=== PATIENT | male | born 1945 | race Caucasian/White ===

== ENCOUNTER 2016-08-08 17:02 | Emergency (ER) | payer MEDICARE, OTHER ==
[2016-08-08 18:03] LABS: BASOPHIL 0.3 % (0-2); EOSINOPHIL 0.3 % (0-7); HGB 12.1 g/dl (13.2-18.0); LYMPHOCYTE 11.1 % (15-48); MCH 30.6 pg (25.0-31.0); MCHC 35.6 g/dL (32.0-36.0); MCV 85.9 fL (78.0-100.0); MONOCYTE 8.3 % (0-12); MPV 8.6 fL (6.0-9.5); PLT 272 K/uL (150-400); RBC 3.96 M/uL (4.70-6.00); WBC 9.2 K/uL (4.0-10.5)
[2016-08-08 18:13] LABS: CREATININE 1.1 mg/dL (0.7-1.2); LACTIC ACID 2.3 mmol/L (0.5-2.2)
[2016-08-08 18:35] LABS: BILIRUBIN NEGATIVE (NEGATIVE); BLOOD 3+ Ery/uL (NEGATIVE); CLARITY CLOUDY (CLEAR); COLOR RED (YELLOW); GLUCOSE (U) NORMAL (NORMAL); KETONE (U) TRACE mg/dL (NEGATIVE); LEUKOCYTES TRACE Leu/uL (NEGATIVE); NITRITE NEGATIVE (NEGATIVE); PROTEIN 3+ mg/dL (NEGATIVE); UROBILINOGEN 0.2 mg/dL (0.2-1.0)
[2016-08-08 18:37] LABS: BACTERIA TRACE; URINARY RBC TNTC
== END 2016-08-08 20:13 | disposition home or self-care (01) ==
LOC: FER 17:02
PROVIDERS: Emergency Medicine
DX: R31.9 Hematuria, unspecified (principal); E11.9 Type 2 diabetes mellitus without complications; I48.91 Unspecified atrial fibrillation; J44.9 Chronic obstructive pulmonary disease, unspecified; K21.9 Gastro-esophageal reflux disease without esophagitis; Z87.891 Personal history of nicotine dependence; Z88.0 Allergy status to penicillin; Z88.5 Allergy status to narcotic agent; Z79.01 Long term (current) use of anticoagulants; Z95.1 Presence of aortocoronary bypass graft
CPT/HCPCS: 36415; 80048; 81001; 83605; 85025; 87040; 87088

== ENCOUNTER 2021-01-01 13:57 | Day surgery (SDCO) | payer MEDICARE, OTHER ==
[~2021-01-01] VITALS: Ht 190.5 cm; Wt 102.2 kg
[~2021-01-01 13:57] MED LIST: AMIODARONE HCL200 MG PO; BILBERRY100 MG PO; BUMEX1 MG PO; CARDIZEM CD180 MG PO; CINNAMON500 MG PO; CLONAZEPAM0.5 MG PO; CO Q-10100 MG PO; CRESTOR5 MG PO; ELIQUIS5 MG PO; ISOSORBIDE MON120 MG PO; LOPRESSOR50 MG PO; METFORMIN HCL500 MG PO; NITROQUIK SL0.4 MG SL; PROAIR DIGIHAL90 MCG INH; RESVERATROL100 MG PO; SPIRIVA18 MCG PO; SYMBICORT 80-10.2 GM INH; VIT C-ROSE HIP500 MG PO; VITAMIN B-121000 MC1 PO
[2021-01-01 15:18] LABS: BASOPHIL 0.3 % (0-2); EOSINOPHIL 1.3 % (0-7); HCT 38.2 % (42.0-52.0); HGB 12.3 g/dl (13.2-18.0); LYMPHOCYTE 16.9 % (15-48); MCH 29.5 pg (25.0-31.0); MCHC 32.2 g/dL (32.0-36.0); MCV 91.6 fL (78.0-100.0); MONOCYTE 8.6 % (0-12); MPV 9.6 fL (6.0-9.5); NEUTROPHIL 72.4 % (41-80); NRBC 0; PLT 237 K/uL (150-400); RBC 4.17 M/uL (4.70-6.00); RDW 14.2 % (11.5-14.0); WBC 12.8 K/uL (4.0-10.5)
[2021-01-01 15:34] LABS: ALBUMIN 3.8 g/dL (3.4-5.0); BILIRUBIN - TOTAL 0.5 mg/dL (0.2-1.0); BUN/CREAT RATIO (CALC) 20.8 RATIO; CREATININE 1.73 mg/dL (0.67-1.17); GLOBULIN (CALCULATION) 4.7 g/dL; POTASSIUM 3.5 mmol/L (3.5-5.1); TOTAL PROTEIN 8.5 g/dL (6.4-8.2)
[2021-01-01 15:42] LABS: PRO-BNP 659 pg/mL (<450)
[2021-01-01 16:05] LABS: LACTIC ACID 3.1 mmol/L (0.4-1.9)
[2021-01-01 17:45] LABS: BILIRUBIN NEGATIVE (NEGATIVE); BLOOD TRACE-INTACT Ery/uL (NEGATIVE); CLARITY CLEAR (CLEAR); COLOR YELLOW (YELLOW); GLUCOSE (U) NORMAL (NORMAL); LEUKOCYTES 2+ Leu/uL (NEGATIVE); NITRITE NEGATIVE (NEGATIVE); PROTEIN NEGATIVE (NEGATIVE); UROBILINOGEN 0.2 mg/dL (0.2-1.0); pH 5.5 (5.0-9.0)
[2021-01-01 17:52] LABS: BACTERIA 2+; URINARY RBC RARE
[2021-01-01] MEDS ORDERED: FOLIC ACID1 MG PO (23:57)
[2021-01-01] MEDS ORDERED: CARDIZEM CD180 MG PO (23:59)
[2021-01-02] MEDS ORDERED: VIBRAMYCIN100 MG PO
[2021-01-02] MEDS ORDERED: CRESTOR5 MG PO (00:02)
[2021-01-02] MEDS ORDERED: ASPIRIN EC81 MG PO (00:05)
[2021-01-02] MEDS ORDERED: FLOMAX0.4 MG PO (00:07)
[2021-01-02] MEDS ORDERED: NEURONTIN100 MG PO (00:09)
[2021-01-02] MEDS ORDERED: SYMBICORT 80-10.2 GM INH (00:09)
[2021-01-02] MEDS ORDERED: NITROGLYCERIN1 EAC1 TD (00:10)
[2021-01-02] MEDS ORDERED: ASCORBIC ACID500 MG PO (00:15)
[2021-01-02] MEDS ORDERED: CANDICIDAL CAP1 EACH PO (00:16)
[2021-01-02 06:59] LABS: BASOPHIL 0.6 % (0-2); EOSINOPHIL 2.4 % (0-7); HGB 10.5 g/dl (13.2-18.0); LYMPHOCYTE 17.5 % (15-48); MCHC 31.8 g/dL (32.0-36.0); MCV 91.2 fL (78.0-100.0); MONOCYTE 8.7 % (0-12); MPV 8.8 fL (6.0-9.5); NEUTROPHIL 70.4 % (41-80); NRBC 0; PLT 190 K/uL (150-400); RBC 3.62 M/uL (4.70-6.00); RDW 13.9 % (11.5-14.0); WBC 8.2 K/uL (4.0-10.5)
[2021-01-02 07:37] LABS: ALBUMIN 3.3 g/dL (3.4-5.0); BILIRUBIN - TOTAL 0.5 mg/dL (0.2-1.0); BUN/CREAT RATIO (CALC) 18.4 RATIO; CREATININE 1.58 mg/dL (0.67-1.17); GLOBULIN (CALCULATION) 3.5 g/dL; MAGNESIUM 1.7 mg/dL (1.8-2.4); PHOSPHORUS 4.4 mg/dL (2.6-4.7); POTASSIUM 3.8 mmol/L (3.5-5.1); TOTAL PROTEIN 6.8 g/dL (6.4-8.2)
[2021-01-02 07:41] LABS: PRO-BNP 411 pg/mL (<450)
[2021-01-02 14:56] LABS: HGB 11.3 g/dL (13.2-18.0)
[2021-01-02 16:35] LABS: IRON % SATURATION 7.9 %SAT (20-50)
[2021-01-03 06:15] LABS: BASOPHIL 0.7 % (0-2); EOSINOPHIL 5.3 % (0-7); HCT 32.5 % (42.0-52.0); HGB 10.5 g/dl (13.2-18.0); LYMPHOCYTE 17.6 % (15-48); MCH 29.2 pg (25.0-31.0); MCHC 32.3 g/dL (32.0-36.0); MCV 90.3 fL (78.0-100.0); MONOCYTE 12.5 % (0-12); MPV 9.2 fL (6.0-9.5); NEUTROPHIL 63.5 % (41-80); NRBC 0; PLT 201 K/uL (150-400); RDW 13.8 % (11.5-14.0); WBC 5.6 K/uL (4.0-10.5)
[2021-01-03 07:01] LABS: ALBUMIN 3.1 g/dL (3.4-5.0); BILIRUBIN - TOTAL 0.2 mg/dL (0.2-1.0); BUN/CREAT RATIO (CALC) 18.1 RATIO; CREATININE 1.49 mg/dL (0.67-1.17); MAGNESIUM 1.9 mg/dL (1.8-2.4); POTASSIUM 3.6 mmol/L (3.5-5.1); TOTAL PROTEIN 7.1 g/dL (6.4-8.2)
[2021-01-03] MEDS ORDERED: MACROBID100 MG PO (08:32)
[2021-01-03] MEDS ORDERED: FEOSOL325 MG PO (08:32)
[2021-01-03] MEDS ORDERED: LACTOBACILLUS1 EACH PO (08:32)
[2021-01-03] MEDS ORDERED: MAG-OXIDE 400M400 MG PO (08:32)
[2021-01-04] MEDS ORDERED: BACTRIM DS TAB1 EACH PO (11:51)
== END 2021-01-03 10:48 | disposition home or self-care (01) ==
LOC: FER 13:57 → FMS 20:59
PROVIDERS: Emergency Medicine; Family Medicine; Nurse Practitioner; ADMIT Internal Medicine
DX: A41.9 Sepsis, unspecified organism (principal); N30.01 Acute cystitis with hematuria; R65.20 Severe sepsis without septic shock; I12.9 Hypertensive chronic kidney disease with stage 1 through stage 4 chronic kidney disease, or unspecified chronic kidney disease; N18.30 Chronic kidney disease, stage 3 unspecified; R07.9 Chest pain, unspecified; R29.6 Repeated falls; D63.1 Anemia in chronic kidney disease; E83.42 Hypomagnesemia; E11.40 Type 2 diabetes mellitus with diabetic neuropathy, unspecified; I25.10 Atherosclerotic heart disease of native coronary artery without angina pectoris; J44.9 Chronic obstructive pulmonary disease, unspecified; E78.5 Hyperlipidemia, unspecified; I48.91 Unspecified atrial fibrillation; G47.33 Obstructive sleep apnea (adult) (pediatric); M19.90 Unspecified osteoarthritis, unspecified site; F41.1 Generalized anxiety disorder; Z79.891 Long term (current) use of opiate analgesic; Z88.0 Allergy status to penicillin; Z88.5 Allergy status to narcotic agent; Z88.8 Allergy status to other drugs, medicaments and biological substances; Z20.822 Contact with and (suspected) exposure to COVID-19; Z95.1 Presence of aortocoronary bypass graft
CPT/HCPCS: 36415; 70450; 70486; 71045; 71275; 72125; 80053; 80061; 81001; 82553; 82607; 82728; 83540; 83550; 83605; 83735; 83880; 84100; 84145; 84484; 85018; 85025; 85379; 87040; 87076; 87088; 87186; 93005; 94010; 94640; 97163; 97166; 97530-GP; 97535; G0378; J0692; J7030; J7040; U0002

== ENCOUNTER → 2021-01-24 | Day surgery (SDC) | payer MEDICARE, OTHER ==
[~2021-01-24] VITALS: Ht 190.5 cm; Wt 102.2 kg
[~2021-01-24] MED LIST changes: +ASCORBIC ACID500 MG PO; +ASPIRIN EC81 MG PO; +BACTRIM DS TAB1 EACH PO; +CANDICIDAL CAP1 EACH PO; +FEOSOL325 MG PO; +FLOMAX0.4 MG PO; +FLORANEX TABLE1 EACH PO; +FOLIC ACID1 MG PO; +LACTOBACILLUS1 EACH PO; +MACROBID100 MG PO; +MAG-OXIDE 400M400 MG PO; +NEURONTIN100 MG PO; +NITROGLYCERIN1 EAC1 TD; +PEPCID AC20 MG PO; +VIBRAMYCIN100 MG PO
== END | disposition home or self-care (01) ==
LOC: FAS 09:16
DX: K29.50 Unspecified chronic gastritis without bleeding (principal); K57.30 Diverticulosis of large intestine without perforation or abscess without bleeding; K31.9 Disease of stomach and duodenum, unspecified; D64.9 Anemia, unspecified; I25.10 Atherosclerotic heart disease of native coronary artery without angina pectoris; I10 Essential (primary) hypertension; E11.9 Type 2 diabetes mellitus without complications; E78.00 Pure hypercholesterolemia, unspecified; Z95.1 Presence of aortocoronary bypass graft; G47.33 Obstructive sleep apnea (adult) (pediatric); I48.91 Unspecified atrial fibrillation; M15.9 Polyosteoarthritis, unspecified; E78.5 Hyperlipidemia, unspecified; Z99.89 Dependence on other enabling machines and devices; Z95.818 Presence of other cardiac implants and grafts; Z88.0 Allergy status to penicillin; Z88.5 Allergy status to narcotic agent; Z88.8 Allergy status to other drugs, medicaments and biological substances; Z79.01 Long term (current) use of anticoagulants; Z79.82 Long term (current) use of aspirin; Z79.899 Other long term (current) drug therapy; Z72.89 Other problems related to lifestyle
CPT/HCPCS: J2250; J2370; J2704; J7120